=== PATIENT | female | born 1945 | race Caucasian/White ===

== ENCOUNTER → 2016-08-07 | Outpatient (CLI) | payer OTHER ==
[~2016-08-07] MED LIST: NAPR1TAB9 PO
--- NOTE | 2016-08-07 16:07 | MAMMOGRAPHY REPORT ---
BILATERAL DIGITAL SCREENING MAMMOGRAM WITH CAD: 08/07/2016 CLINICAL HISTORY: Routine screening. Patient has no complaints. TECHNIQUE: Bilateral CC and MLO views were obtained. Current study was also evaluated with a Compute r Aided Detection (CAD) system. COMPARISON: Comparison is made to exams dated: 10/02/2011 mammogram, 08/18/2014 mammogram, 09/28/2010 jonny mogram, 09/27/2009 mammogram - [facility], 02/26/2007, and 04/28/2003 mammogram - [facility]. BREAST COMPOSITION: There are scattered areas of fibroglandular density in both breasts. FINDINGS: There is stable nodularity bilaterally, particularly in the medial left breast, which appea rs similar dating back to the 02-26-2007 mammograms, therefore likely benign. There are benign rim ca lcifications and mild vascular calcifications in the breasts. No new suspicious mass, architectural distortion or cluster of microcalcifications is seen. IMPRESSION: ACR BI-RADS CATEGORY 1: NEGATIVE There is no mammographic evidence of malignancy. A 1 year screening mammogram is recommended. The pa tient will receive written notification of the results. Approximately 10% of breast cancers are not detected with mammography. A negative mammographic report should not delay biopsy if a clinically suggestive mass is present. Sushila Moreno M.D. ay/:08/07/2016 14:42:42 Gas Engine Operator Generators: Roberta HIDALGO)(Karina), [facility] letter sent: Normal 1/2 BI-RADS Code: ACR BI-RADS Category 1: Negative
== END | disposition home or self-care (01) ==
LOC: C.MAMM 10:34
PROVIDERS: ATTEND Family Medicine
DX: Z12.31 Encounter for screening mammogram for malignant neoplasm of breast (principal)

== ENCOUNTER 2020-08-09 05:07 | Observation (INO) ==
--- NOTE | 2020-07-19 10:51 | PAT Medication Instructions ---
Medication Instructions Date of Service July 19, 2020 Home Medications [Airborne (ascorbate sodium)] 1 tab PO QAM DO NOT take the morning of surgery [Airborne (ascorbate sodium)] 1 tab PO QAM NOTHING TO EAT OR DRINK AFTER MIDNIGHT. Other Notes If you have any questions please call us at [phone] or [phone] or [phone] or [phone]
--- NOTE | 2020-07-22 11:22 | Anesthesiology Consultation ---
Date of Service July 22, 2020 Assessment & Plan (1) Encounter for pre-operative examination: COVID screening: Per assessment on 07/22: Travel screen negative, no known COVID- 19 positive contacts or current COVID-19 related symptoms. Surgeon arranging preop COVID testing. Awaiting results. Chart Review Chart Review: Acceptable Risk for Surgery and Patient seen in Pre Admission Testing Teaching & Discussion Pre-Anesthesia Teaching/Discussion Notes: Instructed NPO after midnight before surgery,except medications with 15 cc of water. Medication instructions provided according to the PAT guidelines. History Surgery Operation Date: 08/09/20 11:15 Proposed Procedures p Left Total Hip Replacement(Left) - Hardy Stovall MD Height/Weight Height: 5 ft 3 in Weight: 94.4 kg Allergies Allergy/AdvReac Type Severity Reaction Status Date / Time codeine Allergy Severe Hives Verified 07/13/20 09:50 Medications Home Medications Medication Instructions Recorded Confirmed Last Taken [id number] 1 tab PO QAM 07/13/20 07/13/20 Unknown [Airborne (ascorbate sodium)] Past Medical History Medical History Arthritis of left hip Lumbar spondylosis Obesity Exercise / Class Metabolic Activity II 4-5 Yardwork/Stairs/Walk up hill Past Family History Family History Father FHx: myocardial infarction Other No family history of adverse response to anesthesia Past Surgical History Surgical History History of colonoscopy History of right hip replacement Past Anesthesia History No Hx of Anesthesia Complications (except PONV x1 episode) and No Family Hx of Anesthesia Complications History of PONV History of PONV (x1 episode (right DESI)) and Hx of Motion Sickness (rare) Social History Smoking Status: Never smoker Do You Dip or Chew Tobacco: No Hx Alcohol Use: No Hx Substance Use: No substance use type: does not use Review of Systems No snoring. Patient denies chest pain, shortness of breath, dyspnea on exertion, fever, chills, cough, wheezing, palpitations. Physical Exam Vital Signs VITALS BP 177/91 > 152/91 with manual recheck (pt monitors BP closely, typically 120s/70s, advised to f/u with PCP if persistently elevated BPs) P 63 TEMP 97.9 SP02 99%RA RESP 16 PHYSICAL Full cervical extension range of motion. Full TMJ range of motion. TMD 3 finger breaths Mallampati Score 3 Dentition: intact, + crowns (sides) Lungs: clear throughout to auscultation Cardiac: regular rate and rhythm, no murmurs noted Spine: normal Carotid arteries: negative bruit Extremities: no edema Lab Results Anesthesia Preop Results Results Anesthesia Widget: WBC 5.72 K/uL (4.8-10.8) 07/22/20 Hgb 13.8 g/dL (12.0-16.0) 07/22/20 Hct 42.9 % (37-47) 07/22/20 Plt 236 K/uL (130-400) 07/22/20 Na 141 mmol/L (136-145) 07/22/20 K 4.8 mmol/L (3.5-5.1) 07/22/20 Cl 109 mmol/L (98-107) H 07/22/20 CO2 29 mmol/L (21-32) 07/22/20 BUN 20 mg/dl (7-18) H 07/22/20 Creat 0.90 mg/dl (0.6-1.2) 07/22/20 Glucose Level 95 mg/dl (70-99) 07/22/20 PT 10.3 Seconds (9.0-12.0) 07/22/20 PTT 28.3 Seconds (21.0-31.0) 07/22/20 INR 1.0 (0.9-1.1) 07/22/20 Blood Type O Positive 07/22/20 Antibody Screen NEGATIVE 07/22/20 Testing Electrocardiogram Date: 07/22/20 Findings: + SB @ (59) Chest X-Ray Date: 07/22/20 Findings: + NAD
--- NOTE | 2020-08-06 14:50 | History and Physical Report ---
DATE OF ADMISSION: 08/09/2020 CHIEF COMPLAINT: Left hip pain. HISTORY OF PRESENT ILLNESS: A 75-year-old white female who presents for surgical treatment of her left hip. She has a several year history of increasing left hip pain and discomfort, it has just gradually gotten worse over time. It has become more debilitating. She describes buttock pain, low back pain, leg pain, groin pain into her knee. She did see my partner, Dr. Blas and he felt most of the pain was coming from her hip and not her back. She does have some known back arthritis. No numbness or radicular symptoms. She has difficulty putting her shoes and socks on. She limps more as the day goes on. She takes medicines with minimal relief. She did have one shot, which helped her only for a short period of time. She would like to proceed with surgical treatment. PAST MEDICAL HISTORY: Significant for, 1. Elevated cholesterol. 2. Obesity with a BMI of 37. PAST SURGICAL HISTORY: Include right total hip replacement done in October of 2008. ALLERGIES: None. CURRENT MEDICATIONS: Include, 1. Naproxen. 2. Pantoprazole. 3. Celebrex. SOCIAL HISTORY: A 75-year-old white female. She is from [place]. Does not smoke. No alcohol intake. FAMILY HISTORY: Noncontributory. REVIEW OF SYSTEMS: Negative for diabetes, neurologic problems, vascular problems, or bleeding disorders. No chest pain or shortness of breath. No history of DVT or PE. No known bleeding problems. PHYSICAL EXAMINATION: GENERAL: Shows a pleasant, slightly obese, middle-aged female. Looks to be in reasonably good health. HEENT: Benign. NECK: Supple, no lymphadenopathy. LUNGS: Clear to auscultation. HEART: Regular rate and rhythm. ABDOMEN: Soft, nontender, nondistended. EXTREMITIES: Grossly neurovascularly intact except as follows: Examination of the left hip and leg reveals the patient walks with a slight bit of a limp. Leg lengths clinically appear pretty equal. She may be just a little bit short in the left side. She has no knee effusion. She does have pain and stiffness with hip motion. I can internally rotate to about neutral and that is about it. It recreates her pain. Negative straight leg raise. She is neurologically intact. X-RAYS: X-rays of the left hip reveal moderate to advanced left hip DJD. She has got near complete loss of her superior joint space. She has got some cystic changes of the femoral head and acetabulum. The right hip replacement looks to be in good position without signs of problems. X-rays of the lumbar spine reviewed. It shows significant lumbar spondylosis, particularly at L5-S1. Rest of his spine looks pretty good. ASSESSMENT: A 75-year-old white female with a history of right hip replacement in the past with progressing left hip pain and discomfort and progressive hip arthritis. She also has some lumbar spondylosis and I think both these things contribute to her pain. She would like to have her hip replaced. PLAN: We talked about treatment options. We are going to proceed with a left hip replacement. The risks and benefits of left total hip replacement were explained to the patient including, but not limited to, DVT, PE, , infection, neurological injury, vascular injury, bleeding problem, pain, limited range of motion, stiffness, incomplete relief of symptoms, fracture, leg length inequality, nerve palsy, need for blood transfusion, etc. The patient understands and desires to proceed. Informed consent was obtained. We did talk about her back and that it is not going to relieve any of her back symptoms and it should predictably help her groin and thigh pain. She is aware of this and would like to proceed. She will hold her Naprosyn 10 days preop. I will see her back 2 weeks postop. She is planning to be discharged to home using [facility] home health program. PAMELA
[2020-08-09] MEDS ORDERED: ceFAZolin 2000MG 2,000 MG/15 ML SYR IV SCH (06:00)
[2020-08-09] MEDS ORDERED: LR 500ML BOLUS, THEN 15ML/HR IV SCH (06:00)
[2020-08-09] MEDS ORDERED: ACETAMINOPHEN 500 MG TAB PO SCH (06:00)
[2020-08-09] MEDS ORDERED: TRANEXAMIC ACID 1,000 MG **IV Pre-op IV SCH (06:00)
[2020-08-09] MEDS ORDERED: FAMOTIDINE 20 MG TAB PO SCH (06:00)
[2020-08-09] MEDS ORDERED: LR 60ML/HR IV SCH (06:00)
[2020-08-09] MEDS ORDERED: GABAPENTIN 300 MG CAP PO SCH (06:00)
[2020-08-09] MEDS ORDERED: BUPIVACAINE 0.5 % 5 MG/1 ML PF 10ML VIAL ONE (06:14)
[2020-08-09] MEDS ORDERED: PROPOFOL IV EMULSION 10 MG/ML 20 ML VIAL IV ONE ×2 (06:20→07:38)
[2020-08-09] MEDS ORDERED: fentaNYL citrate 100 MCG/2 ML VIAL ONE (06:21)
[2020-08-09] MEDS ORDERED: MoRPHine SULFATE PF 1 MG/ML 10 ML AMP/VIAL ONE (06:21)
[2020-08-09] MEDS ORDERED: MIDAZOLAM HCL 1 MG/ML 2ML VIAL ONE (06:21)
[2020-08-09] MEDS ORDERED: BUPIVACAINE/EPINEPHRINE 0.5% MPF 1:200,000 30 ML VIAL ONE (06:34)
--- NOTE | 2020-08-09 06:56 | History & Physical Bridge Note ---
Date of Service August 09, 2020 History & Physical Bridge Note I have examined the patient, reviewed the History & Physical and in the interval since the performance of the History & Physical I have noted the following changes of clinical significance: no changes noted
[2020-08-09] MEDS ORDERED: ePHEDrine sulfate 50 MG/ML SYR ONE (07:21)
[2020-08-09] MEDS ORDERED: NALOXONE HCL 0.08 MG in SYRINGE 1.8 ML IV PRN (08:21)
[2020-08-09] MEDS ORDERED: NALOXONE HCL 1 MG in SODIUM CHLORIDE 0.9% 1000ML 1,000 ML IV PRN (08:21)
[2020-08-09] MEDS ORDERED: ePHEDrine sulfate 50 MG/ML AMP IV PRN (08:21)
[2020-08-09] MEDS ORDERED: PROMETHAZINE HCL 25 MG in SODIUM CHLORIDE 0.9% 50 ML IV PRN (08:21)
[2020-08-09] MEDS ORDERED: NALOXONE HCL 0.4 MG/1 ML VIAL/CARP IV PRN ×2 (08:21→10:07)
[2020-08-09] MEDS ORDERED: diphenhydrAMINE 50 MG/ML VIAL IV PRN (08:21)
[2020-08-09] MEDS ORDERED: MoRPHine SULFATE PF 1 MG/ML 10 ML AMP/VIAL INT SPINAL ONE (08:21)
[2020-08-09] MEDS ORDERED: LACTATED RINGER'S 500 ML IV PRN (08:21)
[2020-08-09] MEDS ORDERED: SODIUM CHLORIDE 0.9% 1000ML 1,000 ML IV SCH (08:30)
[2020-08-09] MEDS ORDERED: DC INTRASPINAL MORPHINE SCH (08:30)
[2020-08-09] MEDS ORDERED: NO NARCOTICS OR SEDATIVES SCH (08:30)
--- NOTE | 2020-08-09 09:04 | Operative Report ---
Post Operative Report Pre & Post Diagnosis Operation Date: 08/09/20 07:00 Pre-Op Diagnosis: Left Hip Advanced Degenerative Joint Disease Post-Op Diagnosis: Left Hip Advanced Degenerative Joint Disease, Left Hip Abductor Avulsion I identified the patient and participated in the time-out.: Yes Procedure Operation Date: 08/09/20 07:00 Actual Procedures p Left Total Hip Arthroplasty--Uncemented with Left Hip Abductor Repair(Left) - Hardy Stovall MD Surgeon Hardy Stovall MD Welt Sewer SAL Latham Estimated Blood Loss 200 Findings Consistent with Post-Op Diagnosis Operative findings revealed advanced left hip DJD. As she had a pretty significant hip joint effusion. She had grade 4 [id number] disease of the femoral head and acetabulum. Not a lot of osteophyte formation. She did have a chronic hip abductor avulsion. Fluids 800 cc. Specimens Left femoral head sent for pathology. Anesthesia Type Spinal Complications none Disposition Accompanied Patient To Recovery: Yes Disposition: Recovery Room Indications Patient is a 75-year-old female has a long history of a left hip and back and leg pain. The treatment of extensive conservative treatment. She was evaluated both by the spine surgeons as well as the orthopedics and felt that her hip was the bigger issue as far as her pain. She was clearly having some back pain as well. X-ray showed moderate hip arthritis. She failed conservative measures and elected proceed with left total hip arthroplasty. Of note, she had a right hip replaced 12 years ago and is done well from this. Description of Procedure Operative implants consist of: 1. Biomet G7 size 50 mm acetabular shell. 2. 6.5 cancellous acetabular screws 135 mm in length 125 mm length. 3. [place] hole slag production worker. 4. Highly cross-linked polyethylene liner with a 50 mm outer diameter 36 mm inner diameter. 5. DePuy Corail size 10 KLA femoral stem. 6. +5/36 mm ceramic articular ball. The patient was taken to the operating, identified, and placed on the operating table supine position but all contact areas were properly padded. IV antibiotic s tried by anesthesia team. A spinal anesthetic had been implemented in the holding area. Grullon catheter was placed in sterile fashion. Patient then placed in the right lateral decubitus position. An axillary roll was placed. Stulberg hip positioner was used for positioning in the left hip and leg were then prepped and draped in usual sterile fashion. A posterior lateral approach to the left hip was then performed to a curvilinear incision centered over the greater trochanter. Sharp dissection was got through subcutaneous is down to level the IT band gluteal fascia the IT band gluteal f ascia then incised longitudinally in line with skin incision. The underlying greater bursa was excised. The piriformis and external rotators were tagged and taken off the posterior aspect hip joint capsule. Great care was taken throughout the procedure protect the sciatic nerve at all times. A posterior capsulotomy was then performed leaving a large flap for later repair. Hip was internally rotated and dislocated. Femoral neck osteotomy cut was made with Final Cut about 12 mm above the lesser trochanter. Femoral head was removed and sent for pathology. The femur was retracted anteriorly. Attention drawn the acetabulum. The acetabular labrum was excised with the pulmonary fat was excised. Sequential reaming the acetabular was then performed again with size 45 and progressing up to 49. I did reamed a little bit with a 50. I then placed a 50 mm Biomet G7 acetabular shell in about 40 degrees lateral opening and 20 to 25 degrees of anteversion. I did put a little more anteversion in her cup due to her pretty good hip mobility preoperatively. The cup was secured with 2 screws. A trial liner was placed but attention drawn the femur. The proximal femur was entered with a cookie-cutter followed by canal finder. I then broached begin the size 8 and progressing up to 10. We got good fit of the 10. Then trialed the hip and the +5 articular ball was created full stability in full extension and external rotation flexion to 9 degrees internal rotation over 50 degrees. Leg lengths seemed appropriate and equal and soft tissue tension seemed appropriate. We elected to place these implants. All trial implants were removed. An apex hole slag production worker was placed. Highly cross-linked polyethylene liner was placed. A DePuy size 10 KLA femoral stem was impacted in position. +5/36 mm ceramic articular ball was placed. Hip was located once again found to be stable. Attention drawn toward closing. The wound was irrigated scope soft pulsatile lavage solution. I did inject locally with 60 cc of half percent Marcaine with epinephrine. The posterior capsule and external rotators were repaired through drill holes in the posterior trochanter with #2 Tycron suture. I then scuffed up the greater trochanter on the lateral side and then placed a single Biomet suture anchor. This anchor was double loaded. One of the suture pairs was then fed through the anterior hip abductors and the second set through the superior hip abductors. We then held this in place and repaired the abductors down to the trochanter. I then irrigated the wound extensively. The IT band gluteal fascia then closed in 1 PDS suture running fashion for subcutaneous tissue then closed in 2 layers the deep layer #2 Vicryl suture in the subcutaneous tissues with 2-0 Dexon suture in a buried interrupted fashion the skin was closed skin trace. Leg was then cleaned and dried a sterile Prevena VAC wound VAC dressing was applied. The patient then transferred to the recovery room in stable condition. Patient tolerated procedure well and there were no complications. Reji Latham, my physician equity sales assistant, was present for the entire procedure. His assistance was essential and required for appropriate patient positioning, prepping and draping, surgical exposure, performing the technical details of the operation, placement the implants, closure of the wound, and placement of the sterile bandage. I attest to the content of the Intraoperative Record and any orders documented therein. Any exceptions are noted below.
--- NOTE | 2020-08-09 09:20 | Anesthesiology Progress Note ---
Date of Service August 09, 2020 Anesthesia Post Procedure Vital Signs Vital Signs: Temp Pulse Resp BP BP Pulse Ox 08/09/20 09:11 36.4 C L 74 20 119/96 96 08/09/20 09:01 36.4 C L 79 20 139/80 95 08/09/20 08:51 36.4 C L 79 16 130/66 98 08/09/20 08:41 36 C L 80 14 120/55 L 100 08/09/20 06:25 193/105 H 08/09/20 05:25 36.6 C 68 20 220/92 H 97 Pain Intensity Left Hip: Pain Intensity: 0 Transfer of Care Handoff Completed per policy Notes Mental Status: alert / awake / arousable Patient Amnestic to Procedure: Yes Nausea / Vomiting: adequately controlled Pain: adequately controlled Airway Patency, RR, SpO2: stable & adequate BP & HR: stable & adequate Hydration State: stable & adequate Neuraxial Anesthesia: was administered and sensory block is resolving Anesthetic Complications: no major complications apparent
--- NOTE | 2020-08-09 09:32 | XRay Report ---
AP PELVIS, CROSSTABLE LATERAL LEFT HIP History: Left total hip arthroplasty. Degenerative arthritis. Postop. FINDINGS: The patient is status post a left total hip arthroplasty. The hardware is intact. No fractu re or dislocation. Skin trace are in place. Prior right total hip arthroplasty. IMPRESSION: Left total hip arthroplasty. No evidence for hardware complication. ACT 112: Negative or not required by law. Electronically signed by: Dayday Maharaj M.D. 08/09/2020 9:31 AM
[2020-08-09] MEDS ORDERED: METOCLOPRAMIDE HCL INJ 5 MG/ML 2 ML VIAL IV PRN (10:07)
[2020-08-09] MEDS ORDERED: bisacodyL 10 MG SUPP PR PRN (10:07)
[2020-08-09] MEDS ORDERED: ONDANSETRON INJ 2 MG/ML 2 ML VIAL IV PRN (10:07)
[2020-08-09] MEDS ORDERED: traMADol HCL 50 MG TABLET PO PRN (10:07)
[2020-08-09] MEDS ORDERED: MAGNESIUM HYDROXIDE SUSP 30 ML UDC PO PRN (10:07)
[2020-08-09] MEDS ORDERED: HYDROmorphone INJ 0.5 MG/0.5 ML SYR IV PRN (10:07)
[2020-08-09] MEDS ORDERED: [UNRECOGNIZED DRUG - OTHER] PO SCH (10:07)
[2020-08-09] MEDS ORDERED: ALUMINUM/MAGNESIUM SUSP 30 ML UDC PO PRN (10:07)
[2020-08-09] MEDS: ONDANSETRON INJ 2 MG/ML 2 ML VIAL IV PRN ×2 (10:51→17:43)
[2020-08-09] MEDS ORDERED: KETOROLAC TROMETHAMINE 15 MG/ML VIAL IV SCH (12:00)
[2020-08-09] MEDS: ASPIRIN 81 MG ECTAB PO SCH ×2 (12:40→21:04)
[2020-08-09] MEDS: MULTIVITAMIN TAB PO SCH (12:40)
[2020-08-09] MEDS: DOCUSATE SODIUM 100 MG CAP PO SCH ×2 (12:40→21:04)
[2020-08-09] MEDS: SODIUM CHLORIDE 0.9% 1000ML 1,000 ML IV SCH (14:20)
[2020-08-09] MEDS: ACETAMINOPHEN 500 MG TAB PO SCH ×2 (14:20→21:05)
[2020-08-09] MEDS: ceFAZolin 2000MG 2,000 MG/15 ML SYR IV SCH ×2 (14:21→22:51)
[2020-08-09] MEDS ORDERED: TRANEXAMIC ACID / 0.7% NACL 1,000 MG/100 ML BAG IV SCH (15:00)
[2020-08-09] MEDS: ASCORBIC ACID 500 MG TAB PO SCH (18:44)
--- NOTE | 2020-08-09 18:50 | Progress Notes ---
DATE OF SERVICE: 08/09/2020 SUBJECTIVE: A 75-year-old white female postop from a left hip replacement. She is doing well. Not having any pain at all yet. No chest pain or shortness of breath. Not feeling dizzy or lightheaded. OBJECTIVE: VITAL SIGNS: Temperature 36.8. Vital signs are stable. GENERAL: Shows a pleasant elderly female. She is lying in bed and looks quite comfortable this afte rnoon. LUNGS: Clear to auscultation. HEART: Has a regular rate and rhythm. ABDOMEN: Soft, nontender, nondistended. EXTREMITIES: Grossly neurovascularly intact except as follows: Examination of the left leg and hip reveals the leg to be well aligned. Leg lengths are equal. Dressing is clean, dry and intact. Her thigh is soft and supple. She can dorsiflex and plantarflex her foot appropriately. She is neurolog ically intact. X-RAYS: X-rays of the left hip from recovery room are reviewed. She has a left uncemented total hip arthroplasty. Components looked to be in good position. No signs of problems. IMPRESSION: A 75-year-old white female postoperative from a left hip replacement, doing well. Pain is controlled. Hip is located. She is neurologically intact. PLAN: 1. DVT prophylaxis including thigh-high TEDs, SCDs and aspirin twice a day. 2. PT, OT, weightbear as tolerated. Left total hip protocol. 3. Pain control, doing well with current pain regimen. 4. IV antibiotics x24 hours. 5. Disposition: Plan to discharge her to home with some home health once adequately recovered and m edically stable. Job ID: [id number]
[2020-08-09] MEDS ORDERED: SENNA 8.6 MG TAB PO SCH (21:00)
[2020-08-10] MEDS: SODIUM CHLORIDE 0.9% 1000ML 1,000 ML IV SCH (00:52)
[2020-08-10] MEDS: KETOROLAC TROMETHAMINE 15 MG/ML VIAL IV SCH ×2 (04:55→10:02)
[2020-08-10] MEDS: ACETAMINOPHEN 500 MG TAB PO SCH (05:18)
[2020-08-10 07:02] LABS: Basophils # (auto) 0.01 K/uL (0-0.2); Basophils % (auto) 0.1 %; Eosinophils # (auto) 0.05 K/uL (0-0.5); Eosinophils % (auto) 0.7 %; Hematocrit (blood only) 37.9 % (37-47); Hemoglobin 11.7 g/dL (12.0-16.0); Immature Granulocytes # (auto) 0.01 K/uL (0.00-0.02); Immature Granulocytes % (auto) 0.1 %; Lymphocytes # (auto) 1.12 K/uL (1.2-3.4); Lymphocytes % (auto) 15.3 %; Mean Corpuscular Hemoglobin 29.1 pg (25-34); Mean Corpuscular Hgb Conc 30.9 g/dL (32-36); Mean Corpuscular Volume 94.3 fL (80-100); Monocytes # (auto) 0.63 K/uL (0.11-0.59); Monocytes % (auto) 8.6 %; Neutrophils # (auto) 5.51 K/uL (1.4-6.5); Neutrophils % (auto) 75.2 %; Platelet Count 203 K/uL (130-400); RDW Coefficient of Variation 15.2 % (11.5-14.5); RDW Standard Deviation 52.4 fL (36.4-46.3); Red Blood Count 4.02 M/uL (4.2-5.4); White Blood Count 7.33 K/uL (4.8-10.8)
[2020-08-10 07:32] LABS: BUN Creatinine Ratio 17.4 (10-20); Calcium 8.5 mg/dl (8.5-10.1); Creatinine Clr Calc Pharmacy 60.8 ml/min; Est GFR (African American) 76.1 ml/min; Est GFR (Non-African American) 65.6 ml/min; Potassium 3.9 mmol/L (3.5-5.1)
--- NOTE | 2020-08-10 07:41 | Orthopedic Progress Note ---
Date of Service August 10, 2020 Assessment & Plan (1) Status post total hip replacement, left: DVT prophylaxis: teds, scd's, and aspirin Pain is controlled. Continue PT?OT: wbat. Total hip precautions Discharge planning: Home with home health today depending on how she does with PT. Subjective .POD #1 from left ac. She's doing pretty well. Not really having much pain. No other complaints. She said she really hasn't been up to walk yet. Review of Systems All systems reviewed & are unremarkable except as noted in HPI & below. Physical Exam . alert and oriented. NAD Left hip/leg: Prevena vac dressing intact and working. Leg is well aligned. She can dorsiflex and plantarflex. NVI Results & Data Results & Data Laboratory Results . Diagnostic Findings . PG Care Time/CCT Total # of Minutes Spent Total Time Spent with Patient: Total time spent is greater than 50% in coordination of care (as documented) at patient's floor/unit and/or counseling patient: Coding Level of Care Code 17702 Post Operative Follow-Up Diagnoses Status post total hip replacement, left Z96.642
[2020-08-10] MEDS ORDERED: dexAMETHasone 10 MG in SYRINGE 0 ML IV SCH (08:00)
[2020-08-10] MEDS: ASPIRIN 81 MG ECTAB PO SCH (08:49)
[2020-08-10] MEDS: ASCORBIC ACID 500 MG TAB PO SCH (08:49)
[2020-08-10] MEDS: MULTIVITAMIN TAB PO SCH (08:49)
[2020-08-10] MEDS: DOCUSATE SODIUM 100 MG CAP PO SCH (08:50)
--- NOTE | 2020-08-12 14:21 | Discharge Summary ---
Date of Service August 12, 2020 Discharge Data Procedures Performed Operation Date: 08/09/20 07:00 Actual Procedures p Left Total Hip Arthroplasty--Uncemented with Left Hip Abductor Repair(Left) - Hardy Stovall MD Hospital Course (1) Status post total hip replacement, left: 75 year old patient admitted on 08/09/20 and underwent total hip arthroplasty. She tolerated the procedure well and there were no complications. Transferred to the PACU post op and later to the orthopedic floor for further care. She was given ancef for antibiotic prophylaxis. She was also given JUSTIN stockings, SCDs, and aspirin for DVT prophylaxis. Hemoglobin, hematocrit, and vital signs were monitored during her hospital stay and remained stable. Did not require any blood transfusions. There were no complications during her hospital stay. By post op day #1 the patient was tolerating a regular diet, pain was reasonably controlled with oral pain medicine, and she was participating in physical therapy. On post op day #1 the patient was discharged home and set up with home health care. She was given printed discharge instructions including prescriptions for extra strength tylenol, aspirin, and tramadol. Continue physical therapy, weight bearing as tolerated. Continue total hip precautions. Continue JUSTIN stockings. Follow up approximately 2 weeks post op or sooner if there are problems or concerns. Coding Level of Care Code None Diagnoses Status post total hip replacement, left Z96.642
== END 2020-08-10 13:10 | disposition home health service (06) ==
LOC: ASU 05:07 → 3E 05:07
DX: Z68.37 Body mass index [BMI] 37.0-37.9, adult; Z88.8 Allergy status to other drugs, medicaments and biological substances; Z88.5 Allergy status to narcotic agent; Z96.641 Presence of right artificial hip joint; M16.12 Unilateral primary osteoarthritis, left hip; Z20.822 Contact with and (suspected) exposure to COVID-19; E78.00 Pure hypercholesterolemia, unspecified; E66.9 Obesity, unspecified

== ENCOUNTER 2024-05-17 19:38 | Inpatient (IN) ==
--- OUTSIDE RECORDS SUMMARY | 2024-05-17 19:42 | External Medical Summary | Summary of Care ---
Author Name Unknown Organization [facility] Address [address] [place] [address] Phone [phone] Care Team Providers Care Industrial Workers Name Role Phone Randy Mann DO Primary Care Provider [phone] Encounter Details Date Type Department Care Team (Late st Contact Info) Description 03/18/2024 Population Health External Data Unspecified Department Allergies Active Allergy Reactions Criticality Noted Date Comments Codeine Rash 08/16/2011 Morphine And Codeine Hives High 09/22/1999 documented as of this encounter (statuses as of 03/18/2024) Medications No known medicationsdocumented as of this encounter (statuses as of 03/18/2024) Active Problems Problem Noted Date Diagnosed Date Pure hypercholesterolemia 04/28/2018 Benign neoplasm of colon 04/05/2006 Overview (08/22/2011): 08/16/11: adenoma, repeat 5 years 04/08/06: hyperplastic tissue-repeat colonoscopy in 3-5 years Menopause 09/22/1999 Overview (08/11/2014): Age 52 Uterine leiomyoma Hip joint replacement status Overview (12/21/2009): [facility] Hardy Stovall documented as of this encounter (statuses as of 03/18/2024) Resolved Problems Problem Noted Date Diagnosed Date Resolved Date ADVANCE DIRECTIVE INFORMATION 03/21/2006 12/30/2023 Overview (03/21/2006): Yes, Patient instructed to provide copy of advance directive for provider to review and to be scanned into Electronic Medical Record ABN PAP SMEAR-CERVIX 01/19/2000 000 documented as of this encounter (statuses as of 03/18/2024) Immunizations Name Administration Dates Next Due Pneumococcal Conjugate Vacc, 13 Valent (Prevnar) 08/11/2014 Pneumococcal Polysaccharide PPV23 (Pneumovax) TDAP (age 10 and older)(Boostrix) 05/28/2022 TDAP, Age 7 and older, IM (Adacel) 07/26/2011 documented as of this encounter Social History Tobacco Use Types Packs/Day Years Used Date Smoking Tobacco: Never Smokeless Tobacco: Never Alcohol Use Standard Drinks/Week Comments No 0 (1 standard drink = 0.6 oz pur e alcohol) rare wine PHQ-2 Answer Date Recorded PHQ Adult Total Score 0 12/03/2022 Hunger Vital Sign Answer Date Recorded Within the past 12 months, y ou worried that your food would run out before you got the money to buy more. Never true 12/04/19 23 Within the past 12 months, t he food you bought just didn't last and you didn't have money to get more. Never true 12/03/2022 Childcare Answer Date Recorded Do you feel overwhelmed with taking care of a child, family member or friend? No 12/03/2022 Does your family need help f inding childcare? (Household - for ages 0-17 years) Not on file 12/03/2022 Clothing Answer Date Recorded Have you been unable to get clothing when it was really needed? No 12/03/2022 Is your family able to get c lothes or diapers when needed? (Household - for ages 0-17 years) Not on file 12/03/2022 Personal Safety Answer Date Recorded Do you feel unsafe or have concerns for your saf ety? No 12/03/2022 Do you have concerns for you r family's safety? (Household - for ages 0-17 years) Not on file 12/03/2022 Utilities Answer Date Recorded Do you have trouble paying y our heating, water, or electric bill? (Adult - for ages 18 years and over) Not on file 12/05/2023 Is your family able to pay t he heat, water, or electric bill? (Household - for ages 0-17 years) Not on file 12/05/2023 Does your family have access to good internet? (Household - for ages 0-17 years) Not on file 12/05/2023 Employment Status Answer Date Recorded Are you unemployed or without regular income? No 12/03/2022 Does the household have a re gular source of income? (Household - for ages 0-17 years) Not on file 12/03/2022 Social Connections Answer Date Recorded How often do you feel lonely or isolated from those around you? (Adult - for ages 18 years and over) Not on file 12/05/2023 Financial Resource Strain Answer Date R ecorded Do you have any trouble payi ng for your medications, or do you think you might in the future? No 12/03/2022 Does your family have troubl e paying for medicine? (Household - for ages 0-17 years) Not on file 12/03/2022 Transportation Needs Answer Date Record ed READ ONLY Do you have troubl e getting a ride to medical visits or work? Never True 12/03/2022 Does your family have a hard time getting a ride to doctors visits? (Household - for ages 0-17 years) Not on file 12/03/2022 Has lack of transportation k ept you from medical appointments, meetings, work, or from getting things needed for daily living? Check all that apply. (Adult - for ages 18 years and over) Not on file 12/03/2022 Do you (or your family) have trouble finding or paying for a ride (transportation)? (Household - for ages 0-17 years) Not on file 12/03/2022 Housing Stability Answer Date Recorded Do you currently live in a s helter or have no steady place to sleep at night? No 12/03/2022 READ ONLY Do you think you a re at risk of becoming homeless? No 12/03/2022 Does your family worry about paying for your home or becoming homeless? (Household - for ages 0-17 years) Not on file 1 Are you homeless or worried that you might be in the future? (Adult - for ages 18 years and over) Not on file Are you (or your family) sherrie eless or worried that you might be in the future? (Household - for ages 0-17 years) Not on file Food Insecurity Answer Date Recorded Do you need food for this week? Yes 12/03/2022 Are you able to get enough f ood for your family? (Household - for ages 0-17 years) Not on file 12/03/2022 Does your family need food t his week? (Household - for ages 0-17 years) Not on file 12/03/2022 Do you always have enough fo od for your family? 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 [place], [place] [address] Randy Mann, [address] [facility] [place], [place] [address] Scheduled Procedures Name Priority Associated Diagnoses Date/Ti me COLONOSCOPY FLEXIBLE PROXIMAL DIAGNOSTIC Recall History of colon polyps Health Maintenance Due Date Last Done Comments Zoster Vaccines (1 of 2) 01/25/1994 Adult Wellness Visit 01/25/2010 DXA Scan 03/05/2021 03/05/2016, 03/29, 04/18/2009, Additional history exists COVID-19 Vaccine ( - 2023- season) 2023 Influenza Vaccine (FLU shot) (#1) 2023 Depression Screening 12/04/2023 12/03/2022 DTap/Tdap Vaccines (3 - Td or Tdap) 05/28/2032 05/28/2022, 07/26/2011 Pneumococcal Vaccine: 50+ Years Completed 02/22/2016, 08/11/2014 RETIRED - COLONOSCOPY-EVERY 5 YRS AGES 18-100 Discontinued 11/19/2016, 11/19/2016, 08/23/2011, Additional history exists HPV (Gardasil) Vaccine Aged Out No lo nger eligible based on patient's age to complete this topic Hepatitis B Vaccine Aged Out No longe r eligible based on patient's age to complete this topic MENINGOCOCCAL (MENACTRA/MENVEO) Aged Out No longer eligible based on patient's age to complete this topic documented as of this encounter Medical Devices Not on filedocumented as of this encounter Advance Directives Documents on File Type Date Recorded Patient Clin Tech Expl anation Advance Directives and Livin g Will 02/11/2015 LIVING WILL Power of Maid Housekeeper 02/11/2015 POWER OF A TTORNEY Care Teams Industrial Workers Relationship Specialty Start Date End Date Randy Mann DO [address] [place] [address] PCP - General Family Medicine 11/02/16 documented as of this encounter
--- OUTSIDE RECORDS SUMMARY | 2024-05-17 19:42 | External Medical Summary | Summary of Care ---
Author Name Unknown Organization [facility] Address [address] [place] [address] Phone [phone] Care Team Providers Care Brineyard Supervisor Name Role Phone Randy Mann DO Primary Care Provider [phone] Reason for Visit * Reason Onset Date Comments Health Maintenance 03/17/2024 Encounter Details Date Type Department Care Team (Late st Contact Info) Description 03/17/2024 Telephone Family Practice [facility] [place] [address] [facility] [place] [address] Randy Mann DO [address] [place] [address] Health Maintenance Allergies Active Allergy Reactions Criticality Noted Date Comments Codeine Rash 08/16/2011 Morphine And Codeine Hives High 09/22/1999 documented as of this encounter (statuses as of 03/17/2024) Medications No known medicationsdocumented as of this encounter (statuses as of 03/17/2024) Active Problems Problem Noted Date Diagnosed Date Pure hypercholesterolemia 04/28/2018 Benign neoplasm of colon 04/05/2006 Overview (08/22/2011): 08/16/11: adenoma, repeat 5 years 04/08/06: hyperplastic tissue-repeat colonoscopy in 3-5 years Menopause 09/22/1999 Overview (08/11/2014): Age 52 Uterine leiomyoma Hip joint replacement status Overview (12/21/2009): right [facility] Dr Hardy Stovall documented as of this encounter (statuses as of 03/17/2024) Resolved Problems Problem Noted Date Diagnosed Date Resolved Date ADVANCE DIRECTIVE INFORMATION 03/21/2006 12/30/2023 Overview (03/21/2006): Yes, Patient instructed to provide copy of advance directive for provider to review and to be scanned into Electronic Medical Record ABN PAP SMEAR-CERVIX 01/19/2000 000 documented as of this encounter (statuses as of 03/17/2024) Immunizations Name Administration Dates Next Due Pneumococcal [...] 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 Not on file Not on file Not on file documented as of this encounter Miscellaneous Notes * Telephone Encounter - Linda Spann LPN - 03/17/2024 3:37 PM EST Care Gaps Comprehensive Care Outreach Last Office/Telemedicine Visit: 06/11/2023 (in office), Visit date not found (telemedicine) Next Office Visit: 06/15/2024 Hemoglobin AIC Results: No results found for: "HEMOGLOBIN A1C" BP Readings from Last 1 Encounters: 06/11/23 132/88 Reviewed Health Maintenance below: Health Maintenance Topic Date Due Zoster Vaccines (1 of 2) Never done Adult Wellness Visit Never done DXA Scan 03/05/2021 Influenza Vaccine (FLU shot) (1) Never done COVID-19 Vaccine ( season) Never done Awv dexa Care Gap Outreach Action Taken: [employer] message sent documented in this encounter Plan of Treatment Upcoming Encounters Date Type Department Care Team (Late st Contact Info) Description 06/15/2024 9:20 AM EDT Office Visit Family Practice [facility] [place] [address] [facility] [place], [place] [address] Randy Mann DO [address] [facility] [place], [place] [address] Scheduled Procedures Name Priority Associated Diagnoses Date/Ti me COLONOSCOPY FLEXIBLE PROXIMAL DIAGNOSTIC Recall History of colon polyps Health Maintenance Due Date Last Done Comments Zoster Vaccines (1 of 2) 01/25/1994 Adult Wellness Visit 01/25/2010 DXA Scan 03/05/2021 03/05/2016, 03/29, 04/18/2009, Additional history exists COVID-19 Vaccine ( - season) 2023 Influenza Vaccine (FLU shot) (#1) [...] Documents on File Type Date Recorded Patient Graduate Assistant Expl anation Advance Directives and Livin g Will 02/11/2015 LIVING WILL Power of Appliance Fixer 02/11/2015 POWER OF A TTORNEY Care Teams Brineyard Supervisor Relationship Specialty Start Date End Date Randy Mann DO [address] [place] [address] PCP - General Family Medicine 11/02/16 documented as of this encounter
[2024-05-17] MEDS: SODIUM CHLORIDE 0.9% 1,000 ML IV ONE (20:03)
[2024-05-17] MEDS: ACETAMINOPHEN 500 MG TAB PO STA (20:04)
--- NOTE | 2024-05-17 20:14 | Emergency Department Note ---
Impression & Plan Weakness, Acute UTI ED Provider Note Provider: Kendall Rojas MD CHIEF COMPLAINT: Weakness, urine infections HISTORY OF PRESENT ILLNESS: Patient is a 79-year-old female history of arthritis and hip replacement presenting here today the ambulance from home. Patient evidently stated about a week ago she started to have urinary symptoms. This has minimized and not having significant urinary pain or frequency. Was taking some d-mannose [id number] for possible urine infection. Denies a significant history of these. [place] any abdominal pain or back pain. No nausea. Generally weak today not eating or drinking much. No falls but was too weak to get up and thus they brought here for evaluation. Upon arrival here did provide a urine sample in the bathroom and states it was only with the help of 2 people she was able to make it there she was weak. No significant focal weakness or dizziness or headache. No chest pain, or again abdominal pain or nausea reported. No confusion reported and family agree. Again no syncope or trauma reported. PAST MEDICAL HISTORY: As noted above MEDICATIONS: Reviewed SOCIAL HISTORY: Lives at home with PHYSICAL EXAM: GENERAL: alert and oriented in no acute distress on stretcher Head: normocephalic and atraumatic EYES: No injection, discharge or icterus. EOMI. NECK: Trachea midline. ENT: Mucous membranes pink and moist. LUNGS: Airway patent. No retractions. Breath sounds clear with good air entry bilaterally. HEART: Regular tachycardic rate and rhythm. No chest wall tenderness ABDOMEN: Soft and non-tender, without guarding or rebound. No masses noted SKIN: Acyanotic, warm, dry, without rashes EXTREMITIES: Without swelling, tenderness or deformity NEUROLOGICAL: No focal deficits moving all extremities symmetrically. No aphasia. No facial droop or slurred speech. EK bpm sinus tachycardia. No PVC or PAC. No acute ST segment elevation or depression with a QTc of 401. CONTINUOUS CARDIAC MONITORING: was ordered and showed a heart rate of 90s-120s bpm in sinus tachycardia to normal sinus rhythm Patient's laboratory studies and imaging reviewed. Differential includes Infection, dehydration, metabolic abnormality, hypo/hyperglycemia, electrolyte disturbance, anemia, hypoxia, cardiac sources, intracerebral event, toxicologic, neurologic, as well as other pathologies. IMPRESSION/MEDICAL DECISION MAKING: Patient well-appearing without focal neurological deficit. Does appear confused encephalopathic. Is noted be somewhat tachycardic. Decreased intake today. Reports urinary symptoms of past week but has not been treated for it other than indg-zpm-rcroies supplements. Denies urinary symptoms currently. Urine sample is sent. Generally weak. Question infectious metabolic abnormality. Denies any significant chest pain or abdominal pain currently. Denies URI symptoms we will obtain respiratory swab. Given some IV fluid here as well as Tylenol she had some chills earlier in the day but afebrile here. Blood work without significant leukocytosis or anemia. Normal platelet count. No significant lecture light abnormality. Creatinine 1.2 she is off prior to stent blood work of approximate 0.9. Lactate normal. No transaminitis. 1 blood culture was sent. Procalcitonin elevated to 0.66. Troponin 16 not severely elevated. No elevated bilirubin or severe transaminitis noted. Urine sample here returns 1 view chest x-ray per my review interpretation without evidence of pneumonia, pneumothorax, pulmonary edema, or free air. Given IV dose of Zosyn here for broad-spectrum antibiotic coverage. Again receiving IV fluid supplementation. Given her weakness and concerns for infection discussed with staying for further care and the hospice team consulted. DIAGNOSIS: Weakness, acute UTI DISPOSITION: Hospitalist will evaluate Patient was agreeable with this plan. Past Med/Surg History Problem List (Updated 05/18/24 @ 00:04 by Kendall Rojas M.D.) Acute UTI (Acute) Weakness (Acute) Acute UTI Status post total hip replacement, left Lumbar spondylosis History of right hip replacement Arthritis of left hip Medical History Arthritis of left hip Lumbar spondylosis Obesity Surgical History History of colonoscopy History of right hip replacement Family History Father FHx: myocardial infarction Other No family history of adverse response to anesthesia Social History Smoking Status: Never smoker Second Hand Exposure: No; Do You Dip or Chew Tobacco: No; Hx Alcohol Use: No Hx Substance Use: No Preferred Language: Serbian Communication Ability: drowsy Fws Faculty Assistant Required: No Beliefs That Will Affect Care: None Current Living Situation: Spouse Feels Safe at Home: Yes Assistive Devices: Walker Allergies Allergies Allergy/AdvReac Type Severity Reaction Status Date / Time codeine Allergy Severe Hives Verified 08/09/20 05:32 Home Meds Home Medications Medication Instructions Recorded Confirmed No Known Home Medications 05/17/24 05/17/24 Results & Data (ED) Vital Signs Vital Signs - 24 hr 05/17/24 19:49 05/17/24 19:50 05/17/24 19:50 Temperature 37.2 C Temperature Source Oral Pulse Rate 114 H 112 H 112 H Pulse Rate from SpO2 Sensor Pulse Rhythm Regular Pulse Strength Normal Respiratory Rate 20 22 Respiratory Effort / Characteristics Non-Labored Spontaneous Respiratory Depth Normal Respiratory Pattern Regular Blood Pressure 145/104 H 145/104 H Blood Pressure Mean 117 110 Pulse Oximetry 95 94 Oxygen Delivery Method Room Air Sepsis Recent Fever Within 48 Hours Yes Sepsis New/Unexplained Change in Mental Status No Sepsis Action Taken by Nursing No Action Required 05/17/24 20:00 05/17/24 20:17 05/17/24 20:30 Temperature Temperature Source Pulse Rate 107 H 100 H 102 H Pulse Rate from SpO2 Sensor Pulse Rhythm Regular Pulse Strength Respiratory Rate 24 20 28 H Respiratory Effort / Characteristics Respiratory Depth Respiratory Pattern Blood Pressure 159/107 H 148/92 H Blood Pressure Mean 121 109 Pulse Oximetry 94 94 95 Oxygen Delivery Method Room Air Sepsis Recent Fever Within 48 Hours Sepsis New/Unexplained Change in Mental Status Sepsis Action Taken by Nursing 05/17/24 20:30 05/17/24 21:00 05/17/24 21:30 Temperature Temperature Source Pulse Rate 89 85 85 Pulse Rate from SpO2 Sensor 85 Pulse Rhythm Pulse Strength Respiratory Rate 26 H 26 H 22 Respiratory Effort / Characteristics Respiratory Depth Respiratory Pattern Blood Pressure 148/92 H 164/82 H 138/76 Blood Pressure Mean 109 89 96 Pulse Oximetry 93 93 93 Oxygen Delivery Method Sepsis Recent Fever Within 48 Hours Sepsis New/Unexplained Change in Mental Status Sepsis Action Taken by Nursing Laboratory Data 05/17/24 19:55 05/17/24 19:55 Lab Results 05/17/24 05/17/24 05/17/24 Range/Units 19:55 20:10 20:25 WBC 10.51 (4.8-10.8) K/ul RBC 4.67 (4.20-5.40) M/uL Hgb 13.5 (12.0-16.0) g/dl Hct 41.9 (37.0-47.0) % MCV 89.7 (80.0-100.0) fL MCH 28.9 (25.0-34.0) pg MCHC 32.2 (32.0-36.0) g/dL RDW Std Deviation 51.4 H (36.4-46.3) fL RDW Coeff of Brett 15.7 H (11.5-14.5) % Plt Count 211 (130-400) K/uL MPV 9.8 (9.4-12.4) fL Immature Gran % (Auto) 0.8 % Neut % (Auto) 87.6 % Lymph % (Auto) 3.9 % [place] % (Auto) 7.2 % Eos % (Auto) 0.1 % Baso % (Auto) 0.4 % Neut # (Auto) 9.21 H (1.40-6.50) K/uL Lymph # (Auto) 0.41 L (1.20-3.40) K/uL [place] # (Auto) 0.76 H (0.11-0.59) K/uL Eos # (Auto) 0.01 (0.00-0.50) K/uL Baso # (Auto) 0.04 (0.00-0.20) K/uL Immature Gran # (Auto) 0.08 (0.01-0.20) K/uL Sodium 139 (136-145) mmol/L Potassium 4.0 (3.5-5.1) mmol/L Chloride 104 (98-107) mmol/L Carbon Dioxide 27 (21-32) mmol/L Anion Gap 8 (3-11) BUN 22 (6-23) mg/dl Creatinine 1.26 H (0.6-1.2) mg/dl Est Cr Clr Drug Dosing 39.8 ml/min eGFR 43.16 BUN/Creatinine Ratio 17.5 (10-20) Glucose 184 H (70-99(Fasting)) mg/dl Lactate 1.9 (0.4-2.0) mmol/L Calcium 9.2 (8.6-10.3) mg/dl Magnesium 1.8 (1.7-2.4) mg/dl Total Bilirubin 1.0 (0.2-1.0) mg/dl AST 54 H (13-39) U/L ALT 40 (7-52) U/L Alkaline Phosphatase 72 (34-104) U/L Troponin I High Sens 16.1 H (0-14) pg/ml Total Protein 6.9 (6.0-8.3) gm/dl Albumin 4.1 (3.4-5.0) gm/dl Globulin 2.8 (2.5-4.0) gm/dl Albumin/Globulin Ratio 1.5 (0.9-2) Procalcitonin 0.66 H (0-0.5) ng/ml TSH 0.939 (0.300-4.500) uIu/ml Urine Color Yellow Urine Appearance Cloudy A (Clear) Urine pH 8.0 H (4.5-7.5) Ur Specific [place] 1.015 (1.000-1.030) Urine Protein 1+ H (Negative) Urine Glucose (UA) Negative (Negative) Urine Ketones 1+ H (Negative) Urine Blood 2+ H (Negative) Urine Nitrite Positive A (Negative) Urine Bilirubin Negative (Negative) Urine Urobilinogen Negative (Negative) Ur Leukocyte Esterase 2+ H (Negative) Urine WBC (Auto) >50 H (0-5) /hpf Urine RBC (Auto) >20 H (0-2) /hpf U Hyaline Cast (Auto) 3-5 H (0-2) /lpf U Epithel Cells (Auto) 3-5 H (0-2) /hpf Urine Bacteria (Auto) 4+ H (None Seen) Amorphous Sediment Present A (None Prsent) Adenovirus (PCR) Not Detected (NotDetected) B. pertussis DNA (PCR) Not Detected (NotDetected) B.parapertussis DNA PCR Not Detected (NotDetected) C. pneumoniae DNA (PCR) Not Detected (NotDetected) Coronavirus OC43 (PCR) Not Detected (NotDetected) Coronavirus HKU1 (PCR) Not Detected (NotDetected) Coronavirus 229E (PCR) Not Detected (NotDetected) SARS-CoV-2 (PCR) Not Detected (NotDetected) Coronavirus NL63 (PCR) Not Detected (NotDetected) Human Metapneumovir PCR Not Detected (NotDetected) Influenza Type A (PCR) Not Detected (NotDetected) Influenza Type B (PCR) Not Detected (NotDetected) M. pneumoniae (PCR) Not Detected (NotDetected) Parainfluenza 1 (PCR) Not Detected (NotDetected) Parainfluenza 2 (PCR) Not Detected (NotDetected) Parainfluenza 3 (PCR) Not Detected (NotDetected) Parainfluenza 4 (PCR) Not Detected (NotDetected) RSV (PCR) Not Detected (NotDetected) Entero/Rhino (PCR) Not Detected (NotDetected) Administered Medications Sodium Chloride (Nss) 1,000 mls @ 100 mls/hr IV .Q10H PARISH Stop: 05/18/24 21:44 Last Admin: 05/17/24 21:54 Dose: 100 mls/hr Documented By: LOS Discontinued Medications Acetaminophen (Acetaminophen 500 Mg Tab) 1,000 mg PO NOW STA Stop: 05/17/24 20:01 Last Admin: 05/17/24 20:04 Dose: 1,000 mg Documented By: LOS Sodium Chloride (Nss) 1,000 mls @ 999 mls/hr IV .Q1H1M ONE Stop: 05/17/24 21:00 Last Infusion: 05/17/24 21:35 Dose: Infused Documented By: Admin: 05/17/24 20:03 Dose: 999 mls/hr Documented By: LOS Piperacillin Sod/Tazobactam Sod (Zosyn) 4.5 gm in 100 mls @ 200 mls/hr IV NOW ONE; Protocol Stop: 05/17/24 21:18 Last Infusion: 05/17/24 21:35 Dose: Infused Documented By: Admin: 05/17/24 21:07 Dose: 200 mls/hr Documented By: LOS Imaging Data Radiologist's Impression: Chest X-Ray 05/17/24 20:00 Exam(s): XR CXR 1 VIEW EXAM: XR Chest, 1 View CLINICAL HISTORY: Reason for exam: weakness. TECHNIQUE: Frontal view of the chest. COMPARISON: Chest x-ray: 07/22/2020 FINDINGS: Lungs: Unremarkable. No consolidation. Pleural space: Unremarkable. No pneumothorax. Heart: Unremarkable. No cardiomegaly. Mediastinum: Unremarkable. Normal mediastinal contour. Bones/joints: Unremarkable. No acute fracture. IMPRESSION: No acute cardiopulmonary abnormality. Electronically signed by: Armando Mcmahon MD 05/17/24 23:40 PM Discharge Plan Visit Data Chief Complaint: Illness Stated Complaint: UTI FOR A WEEK, FEVER, CHILLS ED Provider: Kendall Rojas Discharge Problem: Weakness, Acute UTI Patient Disposition: Being Evaluated by Hospitalist Discharge Instructions Interventions: ED Discharge Assessment Last Done: 05/17/24 22:27
[2024-05-17 20:19] LABS: Basophils # (auto) 0.04 K/uL (0.00-0.20); Basophils % (auto) 0.4 %; Eosinophils # (auto) 0.01 K/uL (0.00-0.50); Eosinophils % (auto) 0.1 %; Hematocrit (blood only) 41.9 % (37.0-47.0); Hemoglobin 13.5 g/dl (12.0-16.0); Immature Granulocytes # (auto) 0.08 K/uL (0.01-0.20); Immature Granulocytes % (auto) 0.8 %; Lymphocytes # (auto) 0.41 K/uL (1.20-3.40); Lymphocytes % (auto) 3.9 %; Mean Corpuscular Hemoglobin 28.9 pg (25.0-34.0); Mean Corpuscular Hgb Conc 32.2 g/dL (32.0-36.0); Mean Corpuscular Volume 89.7 fL (80.0-100.0); Mean Platelet Volume 9.8 fL (9.4-12.4); Monocytes # (auto) 0.76 K/uL (0.11-0.59); Monocytes % (auto) 7.2 %; Neutrophils # (auto) 9.21 K/uL (1.40-6.50); Neutrophils % (auto) 87.6 %; Platelet Count 211 K/uL (130-400); RDW Coefficient of Variation 15.7 % (11.5-14.5); RDW Standard Deviation 51.4 fL (36.4-46.3); Red Blood Count 4.67 M/uL (4.20-5.40); White Blood Count 10.51 K/ul (4.8-10.8)
[2024-05-17 20:32] LABS: Albumin Globulin Ratio 1.5 (0.9-2); Albumin Level 4.1 gm/dl (3.4-5.0); BUN Creatinine Ratio 17.5 (10-20); Calcium 9.2 mg/dl (8.6-10.3); Creatinine Clr Calc Pharmacy 39.8 ml/min; Globulin 2.8 gm/dl (2.5-4.0); Magnesium 1.8 mg/dl (1.7-2.4); Total Protein 6.9 gm/dl (6.0-8.3)
[2024-05-17 20:39] LABS: Troponin I High Sensitivity 16.1 pg/ml (0-14)
[2024-05-17 20:48] LABS: Thyroid Stimulating Hormone 0.939 uIu/ml (0.300-4.500)
[2024-05-17 20:54] LABS: Amorphous Sediment Urine Present (None Prsent); Appearance Urine Cloudy (Clear); Bacteria Urine Automated 4+ (None Seen); Bilirubin Urine Negative (Negative); Blood Urine 2+ (Negative); Color Urine Yellow; Glucose Urine UA Negative (Negative); Ketones Urine 1+ (Negative); Leukocyte Esterase Urine 2+ (Negative); Nitrite Urine Positive (Negative); Protein Urine 1+ (Negative); RBC Urine Automated >20 /hpf (0-2); Specific Gravity Urine 1.015 (1.000-1.030); Urobilinogen Urine Negative (Negative); WBC Urine Automated >50 /hpf (0-5)
[2024-05-17] MEDS: PIPERACILLIN/TAZOBACTAM 4.5 GM/100 ML BAG IV ONE (21:07)
[2024-05-17 21:34] LABS: Adenovirus PCR Not Detected (NotDetected); Bordetella parapertussis PCR Not Detected (NotDetected); Bordetella pertussis PCR Not Detected (NotDetected); Chlamydia pneumoniae PCR Not Detected (NotDetected); Coronavirus 229E PCR Not Detected (NotDetected); Coronavirus CoV-2 (COVID19)PCR Not Detected (NotDetected); Coronavirus HKU1 PCR Not Detected (NotDetected); Coronavirus NL63 PCR Not Detected (NotDetected); Coronavirus OC43PCR Not Detected (NotDetected); Human Metapneumovirus PCR Not Detected (NotDetected); Influenza A PCR Not Detected (NotDetected); Influenza B PCR Not Detected (NotDetected); Mycoplasma pneumoniae PCR Not Detected (NotDetected); Parainfluenza Virus 1 PCR Not Detected (NotDetected); Parainfluenza Virus 2 PCR Not Detected (NotDetected); Parainfluenza Virus 3 PCR Not Detected (NotDetected); Parainfluenza Virus 4 PCR Not Detected (NotDetected); Respiratory Syncytial VirusPCR Not Detected (NotDetected); Rhinovirus/Enterovirus PCR Not Detected (NotDetected)
[2024-05-17] MEDS ORDERED: ACETAMINOPHEN 325 MG TAB PO PRN (21:43)
[2024-05-17] MEDS ORDERED: POLYETHYLENE (MIRALAX) 17 GM PACK PO PRN (21:43)
[2024-05-17] MEDS ORDERED: MAGNESIUM HYDROXIDE SUSP 30 ML UDC PO PRN (21:43)
[2024-05-17] MEDS ORDERED: ALUMINUM/MAGNESIUM SUSP 30 ML UDC PO PRN (21:43)
[2024-05-17] MEDS: SODIUM CHLORIDE 0.9% 1,000 ML IV SCH (21:54)
--- NOTE | 2024-05-17 21:54 | History & Physical Report ---
Date of Service May 17, 2024 Assessment & Plan (1) Acute UTI: Plan: Acute UTI Patient presented to the hospital with generalized weakness, chills for 1 day. Urinary urgency and burning sensation for 1 week WBC count of 10.51K/UL, Creatinine of 1.26. Her creatinine from 09/2022 is 1.1 Pro-Eric slightly elevated Urinalysis suggestive of infection Urine culture from September 2022 reviewed from [facility] EMR; E. coli; sensitive to Zosyn, ceftriaxone, cefepime. Plan to continue Zosyn for now; IV fluid at 100 cc/h. Will follow-up on final Urine and blood culture Obtain PT OT History of hypertensionpreviously on lisinopril, losartan. Not on meds currently. Patient wants to continue to monitor at home. Hyperlipidemia- not on meds, follow up as outpatient DVT prophylaxis heparin Time spent evaluating patient, direct bedside care, chart review, placing orders, interpretation of diagnostic studies, discussion with consultants, patient, and family members, as well as other required patient management activities is 60 minutes Please note the above document was generated using voice recognition software. It may contain grammatical, syntax or spelling errors. Any formal questions or concerns about the content, text or information contained within the body of this dictation should be directly addressed to the provider for clarification History of Present Illness Chief Complaint: Urinary symptoms for 1 week Generalized weakness for 1 day Fever for 1 day Primary Care Provider: Randy Mann DO History obtained from chart review and interview with the patient Past medical history of hyperlipidemia, hypertension not on meds, history of o steoarthritis Patient presented to the hospital with generalized weakness, fever and chills. Reports that she started to have urinary symptoms including urinary urgency and burning sensation about a week ago; took bruc-bal-mgbileo medication which slightly improved the symptoms. However, she started to experience fever with chills along with generalized weakness in last 24 hours. She reports that her appetite has decreased. She denies any abdominal pain, photophobia, sore throat, chest pain, shortness of breath, weakness or numbness of any body part. On presentation to the ED, patient was afebrile, normotensive and saturating well on room air. WBC count of 10.51K/UL, creatinine of 1.26. Urinalysis history of infection. Patient given IV fluid and started on Zosyn; referred for admission. Allergies Allergy/AdvReac Type Severity Reaction Status Date / Time codeine Allergy Severe Hives Verified 08/09/20 05:32 Home Medications Medication Instructions Recorded Confirmed Type No Known Home Medications 05/17/24 05/17/24 History Past Med/Surg History Problem List (Updated 05/17/24 @ 21:50 by Mykel Syed MD) Acute UTI Status post total hip replacement, left Lumbar spondylosis History of right hip replacement Arthritis of left hip Medical History Arthritis of left hip Lumbar spondylosis Obesity Surgical History History of colonoscopy History of right hip replacement Family History Father FHx: myocardial infarction Other No family history of adverse response to anesthesia Social History Smoking Status: Never smoker Second Hand Exposure: No; Do You Dip or Chew Tobacco: No; Hx Alcohol Use: No Hx Substance Use: No Preferred Language: Indonesian Communication Ability: drowsy Jira Developer Required: No Beliefs That Will Affect Care: None Current Living Situation: Spouse Feels Safe at Home: Yes Assistive Devices: Walker Physical Exam Physical Exam: Constitutional: WD/WN, vitals as above, NAD, sitting up in bed, pleasant, conversing easily Respiratory: normal respiratory effort, lungs clear to auscultation, no wheeze, rales, rhonchi. Normal insp/exp effort, no accessory muscle use Cardiovascular: RRR, no murmur, no edema Vessels: no JVD or carotid bruit Chest: normal inspection of chest Abdomen: Soft, nontender. Costovertebral angle nontender Musculoskeletal: no cyanosis or clubbing, extremities motor strength 5/5 Skin: no rashes, warm and dry normal turgor Neurologic: PERRL, EOMI, accommodation nl, no face palsy, no dysarthria CN's II- XI intact bilaterally and moves all extremities Results & Data Results & Data Vital Signs (Past 12 Hours) Vital Signs Temp Pulse Resp BP Pulse Ox O2 Del Method 05/17/24 21:00 85 26 H 164/82 H 93 05/17/24 20:30 89 26 H 148/92 H 93 05/17/24 20:30 102 H 28 H 148/92 H 95 05/17/24 20:17 100 H 20 94 Room Air 05/17/24 20:00 107 H 24 159/107 H 94 05/17/24 19:50 112 H 22 145/104 H 94 05/17/24 19:50 37.2 C 112 H 20 145/104 H 95 Room Air 05/17/24 19:49 114 H Code Status & VTE Plan VTE Prophylaxis Plan VTE Prophylaxis will be ordered: Yes
--- NOTE | 2024-05-17 23:42 | XRay Report ---
Exam(s): XR CXR 1 VIEW EXAM: XR Chest, 1 View CLINICAL HISTORY: Reason for exam: weakness. TECHNIQUE: Frontal view of the chest. COMPARISON: Chest x-ray: 07/22/2020 FINDINGS: Lungs: Unremarkable. No consolidation. Pleural space: Unremarkable. No pneumothorax. Heart: Unremarkable. No cardiomegaly. Mediastinum: Unremarkable. Normal mediastinal contour. Bones/joints: Unremarkable. No acute fracture. IMPRESSION: No acute cardiopulmonary abnormality. Electronically signed by: Armando Mcmahon MD 05/17/24 23:40 PM
[2024-05-18] MEDS: PIPERACILLIN/TAZOBACTAM 4.5 GM/100 ML BAG IV SCH (03:26)
[2024-05-18 07:16] LABS: Basophils # (auto) 0.03 K/uL (0.00-0.20); Basophils % (auto) 0.3 %; Hemoglobin 12.3 g/dl (12.0-16.0); Immature Granulocytes # (auto) 0.05 K/uL (0.01-0.20); Immature Granulocytes % (auto) 0.5 %; Lymphocytes # (auto) 0.49 K/uL (1.20-3.40); Lymphocytes % (auto) 4.6 %; Mean Corpuscular Hemoglobin 29.1 pg (25.0-34.0); Mean Corpuscular Hgb Conc 32.4 g/dL (32.0-36.0); Mean Corpuscular Volume 89.8 fL (80.0-100.0); Mean Platelet Volume 9.8 fL (9.4-12.4); Monocytes # (auto) 0.89 K/uL (0.11-0.59); Monocytes % (auto) 8.3 %; Neutrophils # (auto) 9.24 K/uL (1.40-6.50); Neutrophils % (auto) 86.3 %; Platelet Count 197 K/uL (130-400); RDW Coefficient of Variation 15.5 % (11.5-14.5); RDW Standard Deviation 50.9 fL (36.4-46.3); Red Blood Count 4.23 M/uL (4.20-5.40)
[2024-05-18 07:33] LABS: Albumin Globulin Ratio 1.5 (0.9-2); Albumin Level 3.5 gm/dl (3.4-5.0); BUN Creatinine Ratio 15.6 (10-20); Bilirubin,Total 1.4 mg/dl (0.2-1.0); Calcium 8.2 mg/dl (8.6-10.3); Creatinine Clr Calc Pharmacy 41.1 ml/min; Globulin 2.4 gm/dl (2.5-4.0); Potassium 3.8 mmol/L (3.5-5.1); Total Protein 5.9 gm/dl (6.0-8.3)
[2024-05-18] MEDS: HEPARIN SOD 5,000 UNIT/0.5 ML VIAL SQ SCH (07:44)
[2024-05-18 09:17] LABS: A calco-baum cmplx NotReported Not Detected (NotDetected); Bact fragilis Not Reported Not Detected (NotDetected); Blood Culture Id Panel See PCR Comment (NotDetected); C auris Not Reported Not Detected (NotDetected); CTX-M Resistant Gene Not Detected (NotDetected); Calbicans Not Reported Not Detected (NotDetected); Candida glabrata Not Reported Not Detected (NotDetected); Candida krusei Not Reported Not Detected (NotDetected); Cneoformans/gatti Not Reported Not Detected (NotDetected); Cparapsilosis Not Reported Not Detected (NotDetected); E cloacae compx Not Reported Not Detected (NotDetected); Efaecalis Not Reported Not Detected (NotDetected); Efaecium Not Reported Not Detected (NotDetected); Enterobacterales DETECTED (NotDetected); Enterobacterales Not Reported DETECTED (NotDetected); Escherichia coli Not Reported DETECTED (NotDetected); H influenzae Not Reported Not Detected (NotDetected); IMP Resistant Gene Not Detected (NotDetected); K aerogenes Not Reported Not Detected (NotDetected); KPC Resistant Gene Not Detected (NotDetected); Koxytoca Not Reported Not Detected (NotDetected); Kpneumoniae grp Not Reported Not Detected (NotDetected); Lmonocyt Not Reported Not Detected (NotDetected); N meningitidis Not Reported Not Detected (NotDetected); NDM Resistant Gene Not Detected (NotDetected); OXA 48 Like Resistant Gene Not Detected (NotDetected); P aeruginosa Not Reported Not Detected (NotDetected); Proteus spp Not Reported Not Detected (NotDetected); Salmonella spp Not Reported Not Detected (NotDetected); Staph lugdunensis Not Reported Not Detected (NotDetected); Staph spp. Not Reported Not Detected (NotDetected); Staphaureus Not Reported Not Detected (NotDetected); Staphepi Not Reported Not Detected (NotDetected); Stenmaltophilia Not Reported Not Detected (NotDetected); Strep agal(GrpB) Not Reported Not Detected (NotDetected); Strep pneum Not Reported Not Detected (NotDetected); Strep pyog (GrpA) Not Reported Not Detected (NotDetected); Strep spp Not Reported Not Detected (NotDetected); VIM Resistant Gene Not Detected (NotDetected); mcr-1 Colistin Resistant Gene Not Detected (NotDetected)
--- NOTE | 2024-05-18 14:18 | Electrocardiogram Report ---
Test Reason : Blood Pressure : */* mmHG Vent. Rate : 115 BPM Atrial Rate : 115 BPM P-R Int : 122 ms QRS Dur : 80 ms QT Int : 290 ms P-R-T Axes : 28 -15 120 degrees QTcB Int : 401 ms Sinus tachycardia Poor R wave progression, consider anterior FL vs. lead placement vs. LVH Nonspecific T wave abnormality Abnormal ECG When compared with ECG of 22-Jul-2020 12:02, Vent. rate has increased by [address] now depressed in Lateral leads Nonspecific T wave abnormality, worse in Inferior leads Nonspecific T wave abnormality now evident in Anterolateral leads Confirmed by Ar Avila ([id number]) on 05/18/2024 2:18:18 PM Referred By: REFERRED SELF Confirmed By: Ar Avila
--- NOTE | 2024-05-18 14:23 | Hospitalist Progress Note ---
Date of Service May 18, 2024 Assessment & Plan (1) Acute UTI: Plan: Acute urinary tract infection E. coli bacteremia Generalized weakness secondary to above Blood culture growing gram-negative Urine culture growing E. coli Transition IV Zosyn to ceftriaxone Continue IV fluids PT OT as able Mild transaminitis Mild troponin elevation Likely secondary to infection Monitor LFTs H/O Hypertension:Was on lisinopril, losartan Hyperlipidemia- not on meds Currently not on medications DVT Px: Heparin SQ Admission and Anticipated Discharge Date Admission Date: May 17, 2024 Subjective Patient is seen and examined at bedside Generalized weakness, chills, dysuria much improved Denies any hematuria, chest pain, dyspnea, abdominal pain today No other complaints today Review of Systems Review of Systems: All systems reviewed & are unremarkable except as noted in Subjective Physical Exam Physical Exam: Physical Exam: Vitals signs as noted above General Appearance:Obese, no apparent distress Head: normocephalic, Atraumatic Eyes: normal inspection, EOMI Neck: supple, Trachea midline Respiratory/Chest: Normal breath sounds, CTA, No accessory muscle use Cardiovascular: S1, S2, No murmur Abdomen/GI:Soft, Non tender, Bowel sounds present Extremities/Musculoskeletal:normal inspection, no edema Neurologic/Psych:AAOX3, grossly no focal neurological deficits Skin: normal color, warm Results & Data Results & Data Vital Signs (Past 12 Hours) Vital Signs Temp Pulse Pulse Resp BP BP Pulse Ox 05/18/24 14:14 37.2 C 85 16 138/58 L 95 05/18/24 08:45 36.9 C 78 18 118/67 94 05/18/24 07:00 84 24 157/66 H 92 05/18/24 06:57 87 05/18/24 06:00 91 H 24 148/63 H 91 05/18/24 06:00 24 148/63 H 92 05/18/24 05:00 88 22 146/64 H 92 05/18/24 05:00 87 24 146/64 H 94 05/18/24 04:00 93 H 24 162/77 H 95 05/18/24 03:00 96 H 23 178/89 H 97 O2 Del Method 05/18/24 14:14 Room Air 05/18/24 08:45 Room Air 05/18/24 07:00 05/18/24 06:57 05/18/24 06:00 05/18/24 06:00 03/24/25 05:00 05/18/24 05:00 05/18/24 04:00 05/18/24 03:00 Laboratory Results Short CBC 05/17/24 05/18/24 Range/Units 19:55 07:00 WBC 10.51 10.70 (4.8-10.8) K/ul Hgb 13.5 12.3 (12.0-16.0) g/dl Hct 41.9 38.0 (37.0-47.0) % Plt Count 211 197 (130-400) K/uL BMP 05/17/24 05/18/24 19:55 07:00 Sodium 139 139 Potassium 4.0 3.8 Chloride 104 107 Carbon Dioxide 27 27 BUN 22 19 Creatinine 1.26 H 1.22 H Glucose 184 H 151 H Calcium 9.2 8.2 L Liver Function 05/17/24 05/18/24 Range/Units 19:55 07:00 Total Bilirubin 1.0 1.4 H (0.2-1.0) mg/dl AST 54 H 133 H (13-39) U/L ALT 40 102 H (7-52) U/L Alkaline Phosphatase 72 78 (34-104) U/L Albumin 4.1 3.5 (3.4-5.0) gm/dl Urine 05/17/24 Range/Units 19:55 Urine Color Yellow Urine Appearance Cloudy A (Clear) Urine pH 8.0 H (4.5-7.5) Ur Specific [place] 1.015 (1.000-1.030) Urine Protein 1+ H (Negative) Urine Glucose (UA) Negative (Negative)
[2024-05-18] MEDS: cefTRIAXone SODIUM 2,000 MG/50 ML BAG IV SCH (19:21)
[2024-05-19 06:20] LABS: Hematocrit (blood only) 36.6 % (37.0-47.0); Hemoglobin 11.3 g/dl (12.0-16.0); Mean Corpuscular Hemoglobin 28.3 pg (25.0-34.0); Mean Corpuscular Hgb Conc 30.9 g/dL (32.0-36.0); Mean Corpuscular Volume 91.7 fL (80.0-100.0); Mean Platelet Volume 10.2 fL (9.4-12.4); Platelet Count 190 K/uL (130-400); RDW Coefficient of Variation 15.6 % (11.5-14.5); RDW Standard Deviation 52.7 fL (36.4-46.3); Red Blood Count 3.99 M/uL (4.20-5.40); White Blood Count 7.33 K/ul (4.8-10.8)
[2024-05-19 06:33] LABS: Albumin Level 3.3 gm/dl (3.4-5.0); BUN Creatinine Ratio 13.2 (10-20); Bilirubin Direct 0.1 mg/dl (0-0.2); Bilirubin,Total 0.5 mg/dl (0.2-1.0); Calcium 8.3 mg/dl (8.6-10.3); Creatinine Clr Calc Pharmacy 41.4 ml/min; Magnesium 1.9 mg/dl (1.7-2.4); Potassium 3.8 mmol/L (3.5-5.1)
[2024-05-19 07:39] LABS: Estimated Average Glucose 128 mg/dl; Hemoglobin A1C 6.1 % (4.5-5.6)
[2024-05-19] MEDS: cefTRIAXone SODIUM 2,000 MG/50 ML BAG IV SCH (12:47)
--- NOTE | 2024-05-19 15:38 | Hospitalist Progress Note ---
Date of Service May 19, 2024 Assessment & Plan (1) Acute UTI: Plan: Acute urinary tract infection E. coli bacteremia Generalized weakness secondary to above Blood culture growing gram-negative bacilli Urine culture growing E. coli Transition IV Zosyn to ceftriaxone Received IV fluids PT OT recommends return home Likely discharge tomorrow if blood cultures finalized Mild transaminitis Mild troponin elevation Likely secondary to infection Monitor LFTs LFTs trending down H/O Hypertension:Was on lisinopril, losartan. Currently not on antihypertensives. Patient prefers to monitor BP Hyperlipidemia- not on meds DVT Px: Heparin SQ CODE STATUS Full code Disposition Likely home tomorrow Admission and Anticipated Discharge Date Admission Date: May 17, 2024 Subjective Patient is seen and examined at bedside States feeling a lot better today Dysuria, weakness resolved No recurrence of chills Denies any hematuria, chest pain, dyspnea, abdominal pain today Eager to get discharged Blood cultures pending Review of Systems Review of Systems: All systems reviewed & are unremarkable except as noted in Subjective Physical Exam Physical Exam: Physical Exam: Vitals signs as noted above General Appearance:Obese, no apparent distress Head: normocephalic, Atraumatic Eyes: normal inspection, EOMI Neck: supple, Trachea midline Respiratory/Chest: Normal breath sounds, CTA, No accessory muscle use Cardiovascular: S1, S2, No murmur Abdomen/GI:Soft, Non tender, Bowel sounds present Extremities/Musculoskeletal:normal inspection, no edema Neurologic/Psych:AAOX3, grossly no focal neurological deficits Skin: normal color, warm Results & Data Results & Data Vital Signs (Past 12 Hours) Vital Signs Temp Pulse Resp BP Pulse Ox O2 Del Method 05/19/24 15:30 36.9 C 90 18 175/82 H 96 Room Air 05/19/24 07:22 37.0 C 68 16 130/75 95 Room Air Laboratory Results Short CBC 05/19/24 Range/Units 05:51 WBC 7.33 (4.8-10.8) K/ul Hgb 11.3 L (12.0-16.0) g/dl Hct 36.6 L (37.0-47.0) % Plt Count 190 (130-400) K/uL BMP 05/19/24 05:51 Sodium 141 Potassium 3.8 Chloride 109 H Carbon Dioxide 27 BUN 16 Creatinine 1.21 H Glucose 105 H Calcium 8.3 L Liver Function 05/19/24 Range/Units 05:51 Total Bilirubin 0.5 D (0.2-1.0) mg/dl Direct Bilirubin 0.1 (0-0.2) mg/dl AST 76 H (13-39) U/L ALT 88 H (7-52) U/L Alkaline Phosphatase 73 (34-104) U/L Albumin 3.3 L (3.4-5.0) gm/dl
[2024-05-20 05:52] LABS: Hematocrit (blood only) 37.4 % (37.0-47.0); Hemoglobin 11.6 g/dl (12.0-16.0); Mean Corpuscular Hemoglobin 28.4 pg (25.0-34.0); Mean Corpuscular Volume 91.7 fL (80.0-100.0); Platelet Count 199 K/uL (130-400); RDW Coefficient of Variation 15.2 % (11.5-14.5); RDW Standard Deviation 51.5 fL (36.4-46.3); Red Blood Count 4.08 M/uL (4.20-5.40); White Blood Count 5.38 K/ul (4.8-10.8)
[2024-05-20 06:09] LABS: Albumin Level 3.3 gm/dl (3.4-5.0); BUN Creatinine Ratio 15.8 (10-20); Bilirubin Direct 0.1 mg/dl (0-0.2); Bilirubin,Total 0.3 mg/dl (0.2-1.0); Calcium 8.6 mg/dl (8.6-10.3); Potassium 3.9 mmol/L (3.5-5.1)
[2024-05-20 07:14] VITALS: TEMP 98.1; O2SAT 96
--- NOTE | 2024-05-20 13:34 | Discharge Summary ---
Date of Service May 20, 2024 Admission HPI Per Admitting Provider History obtained from chart review and interview with the patient Past medical history of hyperlipidemia, hypertension not on meds, history of osteoarthritis Patient presented to the hospital with generalized weakness, fever and chills. Reports that she started to have urinary symptoms including urinary urgency and burning sensation about a week ago; took colr-hlp-sjkebzb medication which slightly improved the symptoms. However, she started to experience fever with chills along with generalized weakness in last 24 hours. She reports that her appetite has decreased. She denies any abdominal pain, photophobia, sore throat, chest pain, shortness of breath, weakness or numbness of any body part. On presentation to the ED, patient was afebrile, normotensive and saturating well on room air. WBC count of 10.51K/UL, creatinine of 1.26. Urinalysis history of infection. Patient given IV fluid and started on Zosyn; referred for admission. Admission Exam Per Admitting Provider Constitutional: WD/WN, vitals as above, NAD, sitting up in bed, pleasant, conversing easily Respiratory: normal respiratory effort, lungs clear to auscultation, no wheeze, rales, rhonchi. Normal insp/exp effort, no accessory muscle use Cardiovascular: RRR, no murmur, no edema Vessels: no JVD or carotid bruit Chest: normal inspection of chest Abdomen: Soft, nontender. Costovertebral angle nontender Musculoskeletal: no cyanosis or clubbing, extremities motor strength 5/5 Skin: no rashes, warm and dry normal turgor Neurologic: PERRL, EOMI, accommodation nl, no face palsy, no dysarthria CN's II- XI intact bilaterally and moves all extremities Principal Diagnosis Complicated UTI and bacteremia Discharge Exam General Appearance:Obese elderly F in NAD Head: normocephalic, Atraumatic Eyes: normal inspection, EOMI Neck: supple Respiratory/Chest: Normal breath sounds, CTA, No accessory muscle use Cardiovascular: S1, S2, No murmur Abdomen/GI:Soft, Non tender, Bowel sounds present Extremities/Musculoskeletal:normal inspection, no edema Neurologic/Psych:AAOX3, grossly no focal neurological deficits Skin: normal color, warm Discharge Data Allergies Allergy/AdvReac Type Severity Reaction Status Date / Time codeine Allergy Severe Hives Verified 08/09/20 05:32 Consultations 05/17/24 21:11 ED Decision to Admit Stat 05/20/24 08:14 Consult Infectious Diseases Routine Hospital Course (1) Acute UTI: Acute urinary tract infection E. coli bacteremia Generalized weakness secondary to above Blood culture growing gram-negative bacilli - E.coli Urine culture growing E. coli Transitioned IV Zosyn to ceftriaxone - will DC on PO ciprofloxacin Received IV fluids PT OT recommends return home Pt feels well, will DC home Mild transaminitis Mild troponin elevation Likely secondary to infection Monitor LFTs LFTs trending down H/O Hypertension:Was on lisinopril, losartan. Currently not on antihypertensives. Patient prefers to monitor BP. Will follow with [facility] Hyperlipidemia- not on meds Total Time Total Time Spent Total Time Spent (In Minutes): 40 Discharge Plan Discharge Items Patient Disposition: Home - Self-Care Reason For Visit: UTI Discharge Diagnosis: Complicated UTI and bacteremia Activity: Per Instructions section Non-emergency contact: Primary Care Provider Call non-emergency contact if: you have any medication questions and your symptoms worsen Follow-up/Referrals: Randy Mann DO [Primary Care Provider] - 05/27/24 1:40 pm (Date & Time 05/27/2024 1:40 PM Provider: Randy Mann DO [facility] ) Diet: Heart Healthy Addtl Attending Provider Instructions: Follow up with your primary care doctor within 1-2 weeks. The appointment was scheduled for you for 05/27/2024. Finish antibiotic course with ciprofloxacin as prescribed. Also recommend, you monitor your blood pressure and discuss it with your health care providers. Pending Studies at Discharge: Yes Studies:: final blood cultx results Stand-Alone Forms: [facility] [place], Smoking Cessation Medications and DC Order Prescriptions: New ciprofloxacin HCl 500 mg Tablet 500 mg PO BID 5 Days Qty: 10 0RF Discharge Orders: Discharge Order (Routine); Ordered 05/20/24 Ordered By: Wellington Orellana/Other Patient Handouts: Prediabetes, 5 Steps for Eating Healthier Admission Data Admit Date/Time: 05/17/24 21:44 Attending Provider: Wellington Nina Admit Provider: Mykel Syed Primary Care Provider: Randy Mann Other Providers: Mykel Syed; Miguel Jim; Armando Lou; Sean Ellis; Rhoith Stovall I.; Steven Hernandez II; Sejal German; Dave Purcell; Tee Costa; Jean Carlos Vega; Nirmal Guardado A
--- NOTE | 2024-05-20 14:16 | Infectious Disease Consult ---
Date of Service May 20, 2024 Telehealth Information I performed this visit using a real-time telehealth connection between my location and the patients location ([facility]). After connecting through interactive tele-video, patient was identified by name and date of and/or wristband check.Patient (or authorized healthcare credit and collections representative) was informed that this was a telemedicine visit and it was being conducted confidentially over secure lines. My office door was closed and no on e else was present in the room with me.Patient (or authorized healthcare credit and collections representative) provided consent to proceed with the visit, expressed an understanding of privacy and security of the telemedicine visit, and gave permission to have a hospital credit and collections representative in the room in order to assist with the visit and to conduct portions of the visit, as needed. I informed the patient (or authorized healthcare credit and collections representative) that I reviewed their record and presented the opportunity for them to ask any questions regarding the visit today. The patient agreed to participate. Assessment & Plan (1) Acute UTI: (2) E coli bacteremia: Plan Patient improved significantly, unfortunately resistant to bactrim. E. Coli iso lates sensitive to cipro. Given degree of infection, even though patient denies back/flank pain would reccomend u/s kidney to ensure no abscess given duration of symptoms. If negative, can complete a total of 7 days. Inpatient can continue with ceftriaxone, transition to cipro on DC. - Ceftriaxone 2g IV q 24 hours - On discharge, Ciprofloxicin 500mg BID for total of 7 days EOT 06/25/24 Appreciate consultation, Infectious Disease will sign off at this time, please do not hesitate to reach out for any further questions or concerns. Nirmal Guardado MD PGY5 Infectious Disease History of Present Illness History of Present Illness 79F presented with dysuria, urgency with low grade fevers, Urinalysis consisitant with infection w growth of E. Coli, complicated by bottles blood culture growth of same isolate. Patient has completed 2 days of ceftriaxone with defervescence. Patient endorses resolution of dysuria/urgency. She notes having symptoms for over a week prior to seeking medical advice. Allergies Allergy/AdvReac Type Severity Reaction Status Date / Time codeine Allergy Severe Hives Verified 08/09/20 05:32 Home Medications Medication Instructions Recorded Confirmed Type ciprofloxacin HCl 500 mg tablet 500 mg PO BID 5 days #10 tabs 05/20/24 Rx Patient History Medical History Arthritis of left hip Lumbar spondylosis Obesity Surgical History History of colonoscopy History of right hip replacement Family History Father FHx: myocardial infarction Other No family history of adverse response to anesthesia Social History Smoking Status: Never smoker Second Hand Exposure: No; Do You Dip or Chew Tobacco: No; Hx Alcohol Use: No Hx Substance Use: No Preferred Language: Bahamian Communication Ability: Effective Emotional Disabilities Teacher Required: No Beliefs That Will Affect Care: None Current Living Situation: Spouse Feels Safe at Home: Yes Safety Concerns: Feels Safe At This Time Assistive Devices: Cane, Hospital Bed, Walker and Wheelchair Review of Systems CONSTITUTIONAL: Denies weight loss, fever and chills. HEENT: Denies changes in vision and hearing. RESPIRATORY: Denies SOB and cough. CV: Denies palpitations and CP. GI: Denies abdominal pain, nausea, vomiting and diarrhea. : Denies dysuria and urinary frequency. MSK: Denies myalgia and joint pain. SKIN: Denies rash and pruritus. NEUROLOGICAL: Denies headache and syncope PSYCHIATRIC: Denies recent changes in mood. Denies anxiety and depression. Physical Exam GENERAL: Appears as stated age. No acute distress. NEUROLOGIC: No focal neurological deficits. Cranial nerves grossly intact. Results & Data Vital Signs (Past 12 Hours) Vital Signs Temp Pulse Pulse Resp BP BP Pulse Ox 05/20/24 14:07 36.7 C 85 71 15 129/73 164/93 H 96 05/20/24 07:13 36.7 C 71 15 164/93 H 96 O2 Del Method 05/20/24 14:07 05/20/24 07:13 Room Air Laboratory Results Chest X-Ray 05/17/24 20:00 Exam(s): XR CXR 1 VIEW EXAM: XR Chest, 1 View CLINICAL HISTORY: Reason for exam: weakness. TECHNIQUE: Frontal view of the chest. COMPARISON: Chest x-ray: 07/22/2020 FINDINGS: Lungs: Unremarkable. No consolidation. Pleural space: Unremarkable. No pneumothorax. Heart: Unremarkable. No cardiomegaly. Mediastinum: Unremarkable. Normal mediastinal contour. Bones/joints: Unremarkable. No acute fracture. IMPRESSION: No acute cardiopulmonary abnormality. Electronically signed by: Armando Mcmahon MD 05/17/24 23:40 PM Diagnostic Findings 05/17/24 20:10 Aerobic Blood Culture - Preliminary Blood Escherichia coli Anaerobic Blood Culture - Preliminary No growth in Anaerobic bottle after 48 hours. 05/20/24 05:30 WBC 5.38 RBC 4.08 L Hgb 11.6 L Hct 37.4 MCV 91.7 MCH 28.4 MCHC 31.0 L RDW Std Deviation 51.5 H RDW Coeff of Brett 15.2 H Plt Count 199 MPV 10.0 Sodium 142 Potassium 3.9 Chloride 107 Carbon Dioxide 28 Anion Gap 7 BUN 18 Creatinine 1.14 Est Cr Clr Drug Dosing 44.0 eGFR 48.67 BUN/Creatinine Ratio 15.8 Glucose 106 H Calcium 8.6 Total Bilirubin 0.3 Direct Bilirubin 0.1 AST 41 H ALT 65 H Alkaline Phosphatase 69 Total Protein 6.0 Albumin 3.3 L
[2024-05-20 14:29] VITALS: BP 156/84; PULSE 68; RESP 16
--- NOTE | 2024-05-20 16:28 | Ultrasound Report ---
Clinical history: Rule out renal abscess Technique: Renal sonography was performed Findings: The kidneys are of normal size and echogenicity. The right kidney measures 9.8 cm in length and the left kidney measures 9.7 cm in length. There is bilateral moderate severity hydronephrosis. No definite renal calculus or mass is seen. The urinary bladder appears unremarkable. There is a suspected uterine leiomyoma, measuring 6.6 x 6.3 x 6.1 cm Impression: 1. Bilateral hydronephrosis. CT of the abdomen and pelvis could be considered for further evaluation 2. No definite renal abscess or other focal renal lesion 3. 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 There are findings on this exam that require communication between the performing entity and the patient following Patient Test Result Information Act ([place] ACT 112) guidelines. Electronically signed by You May 05-20-2024 4:28 PM
[2024-05-20] MEDS ORDERED: CIPROFLOXACIN 500 MG TAB PO SCH (21:00)
== END 2024-05-20 17:18 | disposition home or self-care (01) | DRG 690 ==
LOC: ED 19:38 → SUATTDRO 21:44 → EDINP 21:44 → 3N 22:27
DX: D21.9 Benign neoplasm of connective and other soft tissue, unspecified; Z96.643 Presence of artificial hip joint, bilateral; R78.81 Bacteremia; N13.30 Unspecified hydronephrosis; B96.20 Unspecified Escherichia coli [E. coli] as the cause of diseases classified elsewhere; Z88.5 Allergy status to narcotic agent; E78.5 Hyperlipidemia, unspecified; R74.01 Elevation of levels of liver transaminase levels; N39.0 Urinary tract infection, site not specified; I10 Essential (primary) hypertension